=== PATIENT | male | born 1995 | race Caucasian/White ===

== ENCOUNTER 2019-01-15 12:52 | Emergency (ER) | payer OTHER ==
[2019-01-15] MEDS: LIDOCAINE 1% (MDV) 20 ML INJ SC (13:26)
[2019-01-15] MEDS: ACETAMINOPHEN 325 MG TAB PO (13:45)
== END 2019-01-15 13:57 | disposition home or self-care (01) ==
LOC: FTE 12:52
DX: L05.01 Pilonidal cyst with abscess (principal)
CPT/HCPCS: 10080; 99283-25

== ENCOUNTER 2019-01-18 14:07 | Emergency (ER) | payer OTHER | END 2019-01-18 15:18 | disposition home or self-care (01) | LOC: FTE 14:07 | DX: Z48.00 Encounter for change or removal of nonsurgical wound dressing (principal) | CPT/HCPCS: 99281; Z7502 ==

== ENCOUNTER 2019-01-26 11:16 | Emergency (ER) | payer OTHER | END 2019-01-26 12:44 | disposition home or self-care (01) | LOC: FTE 11:16 | DX: L05.91 Pilonidal cyst without abscess (principal) | CPT/HCPCS: 71045; 99283-25 ==